=== PATIENT | female | born 1955 | race Caucasian/White ===

== ENCOUNTER → 2020-03-21 15:05 | Outpatient (BNVA) | payer BC, SELFPAY | PROVIDERS: Family Provider Internal Medicine; PCP Internal Medicine; Visit Provider Internal Medicine Rheumatology | DX: Z79.899 Other long term (current) drug therapy (principal); Z11.59 Encounter for screening for other viral diseases; R76.0 Raised antibody titer; R76.8 Other specified abnormal immunological findings in serum; R60.9 Edema, unspecified; M19.041 Primary osteoarthritis, right hand; M19.042 Primary osteoarthritis, left hand; R53.83 Other fatigue | CPT/HCPCS: 99203 ==

== ENCOUNTER 2020-04-07 13:32 | Outpatient (CLI) | payer BC, SELFPAY ==
--- NOTE | 2020-04-07 14:13 | US_ITS ---
WS: [id number] Ultrasound of the parotid glands, 04/07/2020 Clinical Data: Sjogren's syndrome Comparison: None. Findings: The parotid glands are well defined and showed uniform echotexture. No cysts, masses or atrophy could be seen. There were no nodules. In the left parotid gland there were lymph nodes which is a normal f inding. US/US soft tissue head neck 12590 Impression: Normal bilateral parotid glands.
--- NOTE | 2020-04-07 14:15 | US_ITS ---
WS: [id number] Subcutaneous ultrasound of the sternum, 04/07/2020 Clinical Data: Sjogren's syndrome Comparison: None. Findings: Normal subcutaneous tissue was seen. There were no cysts, masses or fluid collections.
[2020-04-10 14:08] LABS: Quantiferon Mitogen 7.81 IU/mL; Quantiferon Nil 0.03 IU/mL; Quantiferon Plus TB1 <0.00 IU/mL; Quantiferon Plus TB2 <0.00 IU/mL; Quantiferon TB Gold NEGATIVE (NEGATIVE)
== END 2020-04-07 13:33 | disposition home or self-care (01) ==
LOC: US 13:34
PROVIDERS: PCP Internal Medicine; Visit Provider Internal Medicine Rheumatology
DX: M35.00 Sjogren syndrome, unspecified (principal); Z79.899 Other long term (current) drug therapy
CPT/HCPCS: 76536; 86480

== ENCOUNTER → 2020-05-24 14:32 | Outpatient (BNVA) | payer BC, SELFPAY | PROVIDERS: PCP Internal Medicine; Visit Provider Internal Medicine Rheumatology | DX: R76.8 Other specified abnormal immunological findings in serum (principal); R76.0 Raised antibody titer; M19.041 Primary osteoarthritis, right hand; M19.042 Primary osteoarthritis, left hand; R53.83 Other fatigue | CPT/HCPCS: 99213 ==

== ENCOUNTER → 2025-01-06 10:14 | Outpatient (BNVA) | payer MEDICARE, BC, SELFPAY | PROVIDERS: PCP Internal Medicine; Visit Provider Internal Medicine | DX: E06.3 Autoimmune thyroiditis (principal); R79.89 Other specified abnormal findings of blood chemistry; R60.9 Edema, unspecified; R29.898 Other symptoms and signs involving the musculoskeletal system; R63.5 Abnormal weight gain | CPT/HCPCS: 36415; 83516; 84439; 84443; 84480; 84481; 99204 ==

== ENCOUNTER → 2025-02-16 09:58 | Outpatient (BNVA) | payer MEDICARE, BC, SELFPAY | PROVIDERS: PCP Internal Medicine; Visit Provider Internal Medicine | DX: R60.9 Edema, unspecified (principal); E06.3 Autoimmune thyroiditis; R79.89 Other specified abnormal findings of blood chemistry; R29.898 Other symptoms and signs involving the musculoskeletal system; R63.5 Abnormal weight gain | CPT/HCPCS: 84439; 84443; 84480 ==

== ENCOUNTER → 2025-02-18 10:03 | Outpatient (BNVA) | payer MEDICARE, BC, SELFPAY | PROVIDERS: PCP Internal Medicine; Visit Provider Internal Medicine | DX: E06.3 Autoimmune thyroiditis (principal); R79.89 Other specified abnormal findings of blood chemistry; R29.898 Other symptoms and signs involving the musculoskeletal system; R63.5 Abnormal weight gain | CPT/HCPCS: 82530; 82570 ==

== ENCOUNTER → 2025-03-03 10:58 | Outpatient (BNVA) | payer MEDICARE, BC, SELFPAY | PROVIDERS: PCP Internal Medicine; Visit Provider Internal Medicine | DX: E06.3 Autoimmune thyroiditis (principal); R79.89 Other specified abnormal findings of blood chemistry; R63.5 Abnormal weight gain | CPT/HCPCS: 99214 ==

== ENCOUNTER → 2025-04-05 09:58 | Outpatient (BNVA) | payer MEDICARE, BC, SELFPAY | PROVIDERS: PCP Internal Medicine; Visit Provider Internal Medicine | DX: E03.8 Other specified hypothyroidism (principal); E06.3 Autoimmune thyroiditis; R79.89 Other specified abnormal findings of blood chemistry; R29.898 Other symptoms and signs involving the musculoskeletal system; R63.5 Abnormal weight gain; R53.83 Other fatigue; G47.33 Obstructive sleep apnea (adult) (pediatric) | CPT/HCPCS: 99214 ==

== ENCOUNTER → 2025-04-29 08:52 | Outpatient (BNVA) | payer MEDICARE, BC, SELFPAY | PROVIDERS: PCP Internal Medicine; Visit Provider Internal Medicine | DX: R60.9 Edema, unspecified (principal); E06.3 Autoimmune thyroiditis | CPT/HCPCS: 84439; 84443; 84481 ==

== ENCOUNTER → 2025-06-15 11:32 | Outpatient (BNVA) | payer MEDICARE, BC, SELFPAY | PROVIDERS: PCP Internal Medicine; Visit Provider Internal Medicine | DX: R60.9 Edema, unspecified (principal); E06.3 Autoimmune thyroiditis | CPT/HCPCS: 84439; 84443; 84480 ==

== ENCOUNTER → 2025-06-28 15:34 | Outpatient (BNVA) | payer MEDICARE, BC, SELFPAY | PROVIDERS: PCP Internal Medicine; Visit Provider Internal Medicine Endocrinology, Diabetes & Metabolism | DX: E06.3 Autoimmune thyroiditis (principal); R79.89 Other specified abnormal findings of blood chemistry; R29.898 Other symptoms and signs involving the musculoskeletal system; R63.5 Abnormal weight gain; R53.83 Other fatigue; G47.33 Obstructive sleep apnea (adult) (pediatric) | CPT/HCPCS: 99214 ==